=== PATIENT | female | born 1940 | race Caucasian/White ===

== ENCOUNTER 2020-05-08 12:03 | Emergency (ER) | payer OTHER ==
[2020-05-08 12:19] VITALS: BP 187/77; PULSE 70; TEMP 97.9; BMI 21.0
[2020-05-08] MEDS ORDERED: traMADol HCL 50 MG TABLET PO ONE (13:06)
[2020-05-08] MEDS ORDERED: traMADol HCL 50 MG TABLET ONE (13:12)
== END 2020-05-08 14:15 | disposition home or self-care (01) ==
LOC: JERFT 12:03 → JER 12:03 → JERFT 14:15
DX: M54.31 Sciatica, right side (principal)
CPT/HCPCS: 73502-TC-RT-FY; 99284-25

== ENCOUNTER 2020-07-28 12:40 | Emergency (ER) | payer OTHER ==
[2020-07-28 12:53] VITALS: BMI 19.5
[2020-07-28 13:48] LABS: EOS % 1.5 % (0-4.5); HEMATOCRIT 40.7 % (32.4-45.2); HEMOGLOBIN 13.4 GM/dL (10.7-15.3); LYMPH % 10.8 % (8-40); MCH 28.7 pg (25.7-33.7); MCHC 32.8 g/dl (32.0-36.0); MEAN CELL VOLUME 87.6 fl (80-96); MONO % 12.4 % (3.8-10.2); NEUT % 74.3 % (42.8-82.8); PLATELET COUNT 255 K/MM3 (134-434); RBC 4.65 M/mm3 (3.60-5.2); RDW 15.3 % (11.6-15.6)
[2020-07-28 14:00] LABS: CHLORIDE 104 mmol/L (98-107); SODIUM 136 mmol/L (136-145)
[2020-07-28 14:02] LABS: ALBUMIN 3.7 g/dl (3.4-5.0); CALCIUM 11.5 mg/dL (8.5-10.1); CO2 28 mmol/L (21-32); GLUCOSE,RANDOM 87 mg/dL (74-106)
[2020-07-28 14:03] LABS: BLOOD UREA NITROGEN 12.1 mg/dL (7-18); MAGNESIUM 2.4 mg/dL (1.8-2.4)
[2020-07-28 14:05] LABS: BILIRUBIN,DIRECT 3.1 mg/dL (0.0-0.2); CREATININE 1.1 mg/dL (0.55-1.3); PHOSPHOROUS 2.4 mg/dL (2.5-4.9)
[2020-07-28 14:06] LABS: SGOT/AST 304 U/L (15-37)
[2020-07-28 14:07] LABS: BILIRUBIN,TOTAL 7.4 mg/dL (0.2-1)
[2020-07-28 14:08] LABS: N-TERMINAL BNP 532.5 pg/ml (5-450)
[2020-07-28] MEDS ORDERED: SODIUM CHLORIDE 0.9% 500 ML INFUS.BAG IV ONE (14:09)
[2020-07-28 14:10] LABS: LDH 887 U/L (84-246)
[2020-07-28 14:30] LABS: EPI CELLS >36 /uL (0-25.1); HYALINE CASTS 30 /uL (0-3.1); URINE APPEARANCE CLOUDY; URINE BACTERIA 1802 /uL (0-1359); URINE BILIRUBIN 3+ (NEGATIVE); URINE COLOR DK YELLOW; URINE GLUCOSE (UA) NEGATIVE (NEGATIVE); URINE KETONE 1+ (NEGATIVE); URINE LEUK ESTERASE TRACE (NEGATIVE); URINE NITRITE NEGATIVE (NEGATIVE); URINE PROTEIN 3+ (NEGATIVE); URINE RBC 129 /uL (0-23.9); URINE UROBILINOGEN 0.2 mg/dL (0.2-1.0); URINE WBC 82 /uL (0-25.8)
[2020-07-28 14:40] LABS: ALK PHOS 1527 U/L (45-117); ANION GAP 4 MMOL/L (8-16); SGPT/ALT 254 U/L (13-61)
[2020-07-28 14:54] LABS: YEAST NON SEEN (NEGATIVE)
[2020-07-28 20:49] VITALS: BP 150/76; PULSE 96
[2020-07-28 20:51] VITALS: TEMP 98.6
== END 2020-07-28 20:51 | disposition short-term general hospital (02) ==
LOC: JER 12:40
DX: K86.89 Other specified diseases of pancreas (principal); R17 Unspecified jaundice; R63.4 Abnormal weight loss
CPT/HCPCS: 36415; 71046-TC-FY; 74177-TC; 76705-TC; 80053; 81003; 82248; 82550; 82553; 83010; 83615; 83735; 83880; 84100; 84484; 85025; 87086; 93005; 93010; 99285-25; C9803; U0003; U0005